=== PATIENT | female | born 1970 | race Caucasian/White ===

== ENCOUNTER 2021-07-23 06:32 | Day surgery (SDC) | payer BC ==
[~2021-07-23] VITALS: Ht 167.6 cm; Wt 77.1 kg
[~2021-07-23 06:32] MED LIST: ACET500 PO; CYCL10 PO; DOCU100 PO; Estradiol1 MG PO; FERR325 PO; FISH1000 PO; IBUP400 PO; IBUP800 PO; MIRALAX17 GM PO; NAPR500 PO; Percocet 5-3251 EACH PO
[2021-07-23] MEDS ORDERED: Phendimetrazine35 MG (07:13)
== END 2021-07-23 08:58 | disposition home or self-care (01) ==
LOC: ORSCSDS 06:32
PROVIDERS: Surgery
PROC: 0DJD8ZZ Inspection of Lower Intestinal Tract, Via Natural or Artificial Opening Endoscopic (ICD-10-PCS; principal; 2021-07-23 08:00)
DX: Z12.11 Encounter for screening for malignant neoplasm of colon (principal); K60.2 Anal fissure, unspecified; K64.4 Residual hemorrhoidal skin tags; I10 Essential (primary) hypertension
CPT/HCPCS: J2704; J7120